=== PATIENT | male | born 1970 | race Caucasian/White ===

== ENCOUNTER 2023-07-09 17:57 | Emergency (ER) | payer BC, OTHER ==
[~2023-07-09] VITALS: Ht 175.3 cm; Wt 113.6 kg
[2023-07-09] MEDS ORDERED: TETANUS-DIPTH-ACEL PERTUSSIS 0.5ML SYR Tdap IM ONE (19:00)
[2023-07-09] MEDS ORDERED: HYDROcodone-ACET 5/325MG TAB PO ONE (19:00)
[2023-07-09] MEDS ORDERED: LORazepam 0.5 MG TAB PO ONE (21:00)
[2023-07-09] MEDS ORDERED: AUG875T PO (22:43)
[2023-07-09] MEDS ORDERED: IBUP-1455 PO (22:45)
[2023-07-10] MEDS ORDERED: HYDROcodone-ACET 5/325MG TAB PO ONE (00:15)
[2023-07-10 00:25] VITALS: BP 133/84; PULSE 89; RESP 20; TEMP 98.9; O2SAT 98
== END 2023-07-10 00:25 | disposition home or self-care (01) ==
LOC: ER 17:57
DX: S02.2XXA Fracture of nasal bones, initial encounter for closed fracture (principal); J45.909 Unspecified asthma, uncomplicated; F32.9 Major depressive disorder, single episode, unspecified; E11.9 Type 2 diabetes mellitus without complications; K21.9 Gastro-esophageal reflux disease without esophagitis; I10 Essential (primary) hypertension; F12.90 Cannabis use, unspecified, uncomplicated; Z88.8 Allergy status to other drugs, medicaments and biological substances; W54.0XXA Bitten by dog, initial encounter; Y93.89 Activity, other specified; Y92.89 Other specified places as the place of occurrence of the external cause; Y99.8 Other external cause status
CPT/HCPCS: 12015; 70486; 90471; 90715